=== PATIENT | female | born 1965 | race Caucasian/White ===

== ENCOUNTER 2016-09-08 07:10 | Emergency (ER) | payer OTHER ==
[~2016-09-08] VITALS: Ht 170.2 cm; Wt 60.0 kg
[~2016-09-08 07:10] MED LIST: CIPR750T10 PO; DOXY100T PO; NAPR500 PO; TIMO0.2525 EACH EYE; XALA0.00 EACH EYE
[2016-09-08 07:15] VITALS: BP 118/67; PULSE 65; RESP 16; TEMP 97.8; O2SAT 100
[2016-09-08] MEDS ORDERED: DOXY1TAB71 PO (07:30)
[2016-09-08] MEDS ORDERED: ZOLO50TA PO (07:30)
[2016-09-08] MEDS ORDERED: [UNRECOGNIZED DRUG - CODE] TOP (07:30)
[2016-09-08] MEDS ORDERED: MULT1TAB84 PO (07:30)
[2016-09-08] MEDS ORDERED: KETOROLAC TROMETHAMINE 60 MG/2 ML (IM) VIAL IM ONE (07:30)
--- NOTE | 2016-09-08 07:36 | PD ---
HPI . Left flank pain Chief Complaint: Musculoskeletal Complaint Time Seen by Provider: 07:29 Travel History International Travel<30 days: No Contact w/Intl Traveler<30days: No Traveled to known affect area: No History of Present Illness HPI Patient presents with left flank pain that started about a week ago. She states that she sneezed yesterday and the pain became acutely worse. She states she feels a lump in the left flank area and that the mom is very painful. Pain is exacerbated by movement. Pain is somewhat relieved by ibuprofen. He denies any associated symptoms such as fever, urinary tract symptoms, cough, GI symptoms. PFSH Past Medical History Cancer: Yes (CERVICAL 1996) Diminished Hearing: No Integumentary: Yes (ROSACEA) ?: Not Menopausal: Yes : 7 Para: 3 Miscarriage: 4 Past Surgical History Cholecystectomy: Yes Hysterectomy: Yes Other Surgery: Yes (LIPOMA REMOVED FROM BACK) Social History Alcohol Use: No Tobacco Use: No Substance Use: No Allergies-Medications (Allergen,Severity, Reaction): Coded Allergies: Keflex (Unverified Allergy, Mild, Rash, 09/08/16) Minocycline (Verified Adverse Reaction, Severe, 09/08/16) LOW BP Reported Meds & Prescriptions Reported Meds & Active Scripts Active Reported Multivitamin Adults (Multiple Vitamins W/ Minerals) 1 Tab 1 Tab PO DAILY Zoloft (Sertraline HCl) 50 Mg Tab 50 Mg PO DAILY Dermatop Topical (Prednicarbate) 0.1% Cre 1 Applic TOP DAILY Doxycycline Hyclate DR (Doxycycline Hyclate) 50 Mg Tab 50 Mg PO DAILY Review of Systems Except as stated in HPI: all other systems reviewed are Neg General / Constitutional: No: Fever, Chills Respiratory: No: Cough, Shortness of Breath Gastrointestinal: No: Nausea, Vomiting, Diarrhea, Abdominal Pain Genitourinary: No: Urgency, Frequency, Dysuria Musculoskeletal: Positive: Myalgias Physical Exam Narrative GENERAL: Patient ambulates in without difficulty. She is in no distress. SKIN: Warm and dry. HEAD: Atraumatic. Normocephalic. EYES: Pupils equal and round. ENT: No nasal bleeding or discharge. Mucous membranes pink and moist. NECK: Trachea midline. CARDIOVASCULAR: Regular rate and rhythm. Heart sounds are normal. RESPIRATORY: No accessory muscle use. Lungs are clear with full air movement throughout. GASTROINTESTINAL: Abdomen soft, non-tender, nondistended. There is no CVA tenderness. MUSCULOSKELETAL: No obvious deformities. No edema. She is tender in the left lateral low back at about the L3 level at the posterior axillary line. She is point tender. I do not feel a mass. NEUROLOGICAL: Awake and alert. No obvious cranial nerve deficits. Motor grossly within normal limits. Normal speech. PSYCHIATRIC: Appropriate mood and affect; insight and judgment normal. Data Data Last Documented VS Vital Signs Date Time Temp Pulse Resp B/P Pulse Ox O2 Delivery O2 Flow Rate FiO2 09/08/16 07:15 97.8 65 16 118/67 100 Orders Urinalysis - C+S If Indicated (09/08/16 07:30) Ketorolac Inj (Toradol Inj) (09/08/16 07:30) Labs Laboratory Tests Test 09/08/16 07:35 Urine Collection Type CLEAN CATCH Urine Color YELLOW Urine Turbidity CLEAR Urine pH 5.5 Urine Specific Jones 1.028 Urine Protein NEG mg/dL Urine Glucose (UA) NEG mg/dL Urine Ketones NEG mg/dL Urine Occult Blood MOD Urine Nitrite NEG Urine Bilirubin NEG Urine Leukocyte Esterase SMALL Urine RBC 4-9 /hpf Urine WBC 3-5 /hpf Urine Squamous Epithelial 0-5 /hpf Cells Urine Renal Epithelial Cells 0-5 /hpf Microscopic Urinalysis Comment CULT NOT INDICATED Urine Collection Time 07:35 [facility] Medical Decision Making Medical Screen Exam Complete: Yes Emergency Medical Condition: Yes Differential Diagnosis Differential diagnosis of flank pain includes but is not limited to kidney stone , pyelonephritis, musculoskeletal pain, PE Narrative Course Patient presents complaining of pain for the last week. It is exacerbated by movement. She has no associated symptoms. I feel like she probably has musculoskeletal low back pain and that the lump that she feels is probably a muscle spasm. Unfortunately, she drove herself here and really doesn't want to have to call for a ride. Therefore, I cannot treat her with a muscle relaxant and see how she does. I will check a urine and will plan to discharge her with an analgesic and something for muscle spasms. UA has moderate occult blood and 4-9 red cells. I have discussed our options as far as further evaluation is concerned. CT scanner here is down. I feel that the likelihood of a stone is pretty small given the fact that she does not have any other complaints such as vomiting or dysuria/hematuria. She is comfortable with the idea of going home with treatment for musculoskeletal back pain and follow-up with her primary care provider for further evaluation of possible kidney stone if her symptoms persist. Diagnosis Primary Impression: Left flank pain Med/Other Pt SpecificInfo: Prescription(s) given Scripts Diazepam (Valium)5 Mg Tab5 Mg PO TID PRN (muscle spasm) #12 TAB Ref 0 Prov:Diane Moctezuma MD 09/08/16 Tramadol (Ultram)50 Mg Tab50 Mg PO Q4H PRN (PAIN) #12 TAB Ref 0 Prov:Diane Moctezuma MD 09/08/16 Ibuprofen 800 Mg [id number] Mg PO Q8H PRN (pain) #30 TAB Ref 0 Prov:Diane Moctezuma MD 09/08/16 Disposition: 01 DISCHARGE HOME Condition: Stable Diane Moctezuma MD Sep 08, 2016 07:36
[2016-09-08 07:47] LABS: GLUCOSE,URINE NEG (NEG); KETONE, URINE NEG (NEG); NITRITE,URINE NEG (NEG); PH, URINE 5.5 (5.0-8.5)
[2016-09-08 07:52] LABS: BLOOD, URINE MOD (NEG)
[2016-09-08 07:53] LABS: METHOD OF COLLECTION CLEAN CATCH; URINE COLOR YELLOW (YELLW/STRAW)
[2016-09-08 07:54] LABS: COMMENT (UR) CULT NOT INDICATED; CULTURE IF INDICATED CULT NOT INDICATED; RENAL EPITHELIAL CELLS 0-5 /hpf; SQUAMOUS EPITHELIAL CELL URINE 0-5 /hpf (0-5)
[2016-09-08] MEDS ORDERED: DIAZ5 PO (08:04)
[2016-09-08] MEDS ORDERED: IBUP800T23 PO (08:04)
[2016-09-08] MEDS ORDERED: ULTR50TA5 PO (08:04)
[2016-09-08] MEDS ORDERED: DIAZEPAM 5 MG TAB PO ONE (08:15)
[2016-09-08] MEDS ORDERED: traMADol HCL 50 MG TAB PO ONE (08:15)
[2016-09-08 08:39] VITALS: BP 112/64
[2016-09-09] MEDS ORDERED: ULTR50TA5 PO (03:36)
[2016-09-09] MEDS ORDERED: ZOFR4TAB3 SL (03:37)
== END 2016-09-08 08:40 | disposition home or self-care (01) ==
LOC: PHED 07:10
DX: R10.32 Left lower quadrant pain (principal)
CPT/HCPCS: 81001; 96372; 99284; J1885

== ENCOUNTER 2016-09-08 21:49 | Emergency (ER) | payer OTHER ==
[~2016-09-08] VITALS: Ht 170.2 cm; Wt 60.1 kg
[~2016-09-08 21:49] MED LIST changes: +DIAZ5 PO; +DOXY1TAB71 PO; +IBUP800T23 PO; +MULT1TAB84 PO; +ULTR50TA5 PO; +ZOLO50TA PO; +[UNRECOGNIZED DRUG - CODE] TOP
[2016-09-08 22:03] VITALS: BP 97/63; PULSE 66; RESP 16; TEMP 98.4; O2SAT 97
[2016-09-09 01:00] VITALS: BP 102/62; PULSE 70; RESP 16; O2SAT 99
[2016-09-09] MEDS ORDERED: SODIUM CHLOR 0.9% 1000 ML INJ 1,000 ML IV ONE (01:51)
[2016-09-09] MEDS ORDERED: SODIUM CHLORIDE 0.9% FLUSH 5 ML FLUSH IVF PRN (02:00)
[2016-09-09] MEDS ORDERED: KETOROLAC TROMETHAMINE 30 MG/ML (IVP) VIAL IVP ONE (02:00)
[2016-09-09] MEDS ORDERED: ONDANSETRON HCL 4 MG/2 ML VIAL IVP ONE (02:00)
--- NOTE | 2016-09-09 02:09 | PD ---
HPI Chief Complaint: Complaint Time Seen by Provider: 01:51 Travel History International Travel<30 days: No Contact w/Intl Traveler<30days: No Traveled to known affect area: No History of Present Illness HPI 51-year-old female presents to the emergency department for complaint of left flank pain onset approximately one week ago and sharp pain since forceful sneeze more recently. Patient denies any fever chills or shortness of breath. Patient's had no dysuria frequency or urgency but was noted to have hematuria on urinalysis when evaluated earlier 09/08/15 in the emergency department for same complaint. Imaging study was performed at that time as CT CT scan machine was not functional. Patient returns because pain is returning and she is concerned about etiology of blood in her urine and source of flank pain. No prior history of kidney stones. PFSH Past Medical History Narrative Medical Cervical cancer rosacea G7 para 3 AB for cholecystectomy hysterectomy and tobacco use no alcohol use nursing notes reviewed Cancer: Yes (CERVICAL 1996) Diminished Hearing: No Integumentary: Yes (ROSACEA) ?: Not Menopausal: Yes : 7 Para: 3 Miscarriage: 4 Past Surgical History Cholecystectomy: Yes Hysterectomy: Yes Other Surgery: Yes (LIPOMA REMOVED FROM BACK) Social History Alcohol Use: No Tobacco Use: No Substance Use: No Allergies-Medications (Allergen,Severity, Reaction): Coded Allergies: Keflex (Verified Allergy, Mild, Rash, 09/09/16) Minocycline (Verified Adverse Reaction, Severe, 09/09/16) LOW BP Reported Meds & Prescriptions Reported Meds & Active Scripts Active Zofran Odt (Ondansetron Odt) 4 Mg Tab 4 Mg SL Q6HR PRN Ultram (Tramadol HCl) 50 Mg Tab 50 Mg PO Q6H PRN Valium (Diazepam) 5 Mg Tab 5 Mg PO TID PRN Ultram (Tramadol HCl) 50 Mg Tab 50 Mg PO Q4H PRN Ibuprofen 800 Mg Tab 800 Mg PO Q8H PRN Reported Multivitamin Adults (Multiple Vitamins W/ Minerals) 1 Tab 1 Tab PO DAILY Zoloft (Sertraline HCl) 50 Mg Tab 50 Mg PO DAILY Dermatop Topical (Prednicarbate) 0.1% Cre 1 Applic TOP DAILY Doxycycline Hyclate DR (Doxycycline Hyclate) 50 Mg Tab 50 Mg PO DAILY Review of Systems Except as stated in HPI: all other systems reviewed are Neg Physical Exam Narrative GENERAL: Well-developed well-nourished female in no acute distress no respiratory distress SKIN: Warm and dry. HEAD: Normocephalic. EYES: No scleral icterus. No injection or drainage. NECK: Supple, trachea midline. No JVD or lymphadenopathy. CARDIOVASCULAR: Regular rate and rhythm without murmurs, gallops, or rubs. RESPIRATORY: Breath sounds equal bilaterally. No accessory muscle use. GASTROINTESTINAL: Abdomen soft, non-tender, nondistended. MUSCULOSKELETAL: No cyanosis, or edema. BACK: Nontender without obvious deformity. Left-sided CVA tenderness. Data Data Last Documented VS Vital Signs Date Time Temp Pulse Resp B/P Pulse Ox O2 Delivery O2 Flow Rate FiO2 09/09/16 01:00 70 16 102/62 99 09/08/16 22:03 98.4 Room Air Orders Complete Blood Count With Diff (09/09/16 01:51) Basic Metabolic Panel (Bmp) (09/09/16 01:51) Ct Abd/Pel W/O Iv Contrast (09/09/16 01:51) Ecg Monitoring (09/09/16 01:51) Iv Access Insert/Monitor (09/09/16 01:51) Ketorolac Inj (Toradol Inj) (09/09/16 02:00) Ondansetron Inj (Zofran Inj) (09/09/16 02:00) Sodium Chloride 0.9% Flush (Ns Flush) (09/09/16 02:00) Sodium Chlor 0.9% 1000 Ml Inj (Ns 1000 M (09/09/16 01:51) Labs Laboratory Tests Test 09/09/16 02:05 White Blood Count 7.7 TH/MM3 Red Blood Count 4.57 MIL/MM3 Hemoglobin 12.4 GM/DL Hematocrit 38.3 % Mean Corpuscular Volume 84.0 FL Mean Corpuscular Hemoglobin 27.1 PG Mean Corpuscular Hemoglobin 32.3 % Concent Red Cell Distribution Width 13.1 % Platelet Count 216 TH/MM3 Mean Platelet Volume 8.8 FL Neutrophils (%) (Auto) 66.0 % Lymphocytes (%) (Auto) 25.9 % Monocytes (%) (Auto) 5.6 % Eosinophils (%) (Auto) 2.0 % Basophils (%) (Auto) 0.5 % Neutrophils # (Auto) 5.1 TH/MM3 Lymphocytes # (Auto) 2.0 TH/MM3 Monocytes # (Auto) 0.4 TH/MM3 Eosinophils # (Auto) 0.2 TH/MM3 Basophils # (Auto) 0.0 TH/MM3 CBC Comment DIFF FINAL Differential Comment Sodium Level 144 MEQ/L Potassium Level 3.8 MEQ/L Chloride Level 110 MEQ/L Carbon Dioxide Level 27.7 MEQ/L Anion Gap 6 MEQ/L Blood Urea Nitrogen 22 MG/DL Creatinine 0.64 MG/DL Estimat Glomerular Filtration 97 ML/MIN Rate Random Glucose 96 MG/DL Calcium Level 8.4 MG/DL MDM Medical Decision Making Medical Screen Exam Complete: Yes Emergency Medical Condition: Yes Medical Record Reviewed: Yes Interpretation(s) cbc: grossy wnl metabolic panel: grossly wnl CT abd/pel: CONCLUSION: No evidence of hydronephrosis or calcified renal stones. Kayden Sheth MD on September 09, 2016 at 3:04 Board Certified Radiologist. This report was verified electronically. Differential Diagnosis Flank pain renal colic pyelonephritis rib fracture Narrative Course IV access obtained specimens collected and sent for resulting; patient administered Toradol 30 mg IV and Zofran 4 mg IV along with normal saline 1 L Diagnosis Primary Impression: Left flank pain Referrals: Primary Care Physician call for appointment Patient Instructions: General Instructions Additional Instructions: Increase fluid hydration Take pain medication as prescribed as needed Take nausea vomiting medication as prescribed as needed May use ibuprofen/Advil/Motrin every 6-8 hours as needed for pain associated with inflammation or for fever 100.4F or greater May use as tolerated acetaminophen/Tylenol as needed for fever 100.4F or greater Med/Other Pt SpecificInfo: Prescription(s) given Scripts Ondansetron Odt (Zofran Odt)4 Mg Tab4 Mg SL Q6HR PRN (Nausea/Vomiting) #10 TAB Ref 0 Prov:Denisse Lopez MD 09/09/16 Tramadol (Ultram)50 Mg Tab50 Mg PO Q6H PRN (PAIN) #12 TAB Ref 0 Prov:Denisse Lopez MD 09/09/16 Disposition: 01 DISCHARGE HOME Condition: Stable Denisse Lopez MD Sep 09, 2016 02:09
[2016-09-09 02:33] LABS: AUTOMATED NEUTROPHIL # 5.1 TH/MM3 (1.8-7.7); BASOPHIL % 0.5 % (0.0-2.0); EOSINOPHIL # 0.2 TH/MM3 (0-0.4); HEMATOCRIT 38.3 % (35.0-46.0); HEMO FLAGS DIFF FINAL; LYMPH % 25.9 % (9.0-44.0); MEAN CORPUSCULAR HEMOGLOBIN 27.1 PG (27.0-34.0); MEAN CORPUSCULAR HGB CONC 32.3 % (32.0-36.0); MONO % 5.6 % (0.0-8.0); PLATELET COUNT 216 TH/MM3 (150-450); RED BLOOD COUNT 4.57 MIL/MM3 (4.00-5.30); RED CELL DISTRIBUTION WIDTH 13.1 % (11.6-17.2); WHITE BLOOD COUNT 7.7 TH/MM3 (4.0-11.0)
[2016-09-09 02:42] LABS: POTASSIUM 3.8 MEQ/L (3.5-5.1)
[2016-09-09 02:45] LABS: BICARBONATE 27.7 MEQ/L (21.0-32.0)
--- NOTE | 2016-09-09 03:10 | RADHPO ---
EXAM DATE/TIME: 09/09/2016 02:23 [place] COMPARISON: CT ABDOMEN & PELVIS W/O CONTRAST, October 24, 2014, 1:54. INDICATIONS : Left sided flank pain for one day. ORAL CONTRAST: No oral contrast ingested. RADIATION DOSE: 9.44 CTDIvol (mGy) MEDICAL HISTORY : Carcinoma, cervical. SURGICAL HISTORY : Cholecystectomy. Hysterectomy. ENCOUNTER: Initial ACUITY: 1 day PAIN SCALE: 7/10 LOCATION: Left flank TECHNIQUE: Volumetric scanning of the abdomen and pelvis was performed. Using automated exposure control and ad justment of the mA and/or kV according to patient size, radiation dose was kept as low as reasonably achievable to obtain optimal diagnostic quality images. FINDINGS: LOWER LUNGS: The visualized lower lungs are clear. LIVER: Oval smooth margin 1.5 cm low-density lesion posterior segment right lobe has appearance characterist ic of a cyst, stable from prior. The left lobe liver extends to the left upper quadrant, stable from prior. Hemoclips in the devante from prior cholecystectomy. SPLEEN: Normal size without lesion. PANCREAS: Within normal limits. KIDNEYS: Stable appearance of the collecting system of the left kidney with mild prominence there are no calci fied stones in either kidney or along the course of either ureter. ADRENAL GLANDS: Within normal limits. VASCULAR: There is no aortic aneurysm. BOWEL/MESENTERY: The stomach, small bowel, and colon demonstrate no acute abnormality. There is no free intraperitone al air or fluid. ABDOMINAL WALL: Within normal limits. RETROPERITONEUM: There is no lymphadenopathy. BLADDER: No wall thickening or mass. No calcified stones in the lumen. There are multiple calcified phleboli ths in the pelvis, stable from prior. REPRODUCTIVE: Within normal limits. INGUINAL: There is no lymphadenopathy or hernia. MUSCULOSKELETAL: Within normal limits for patient age. CONCLUSION: No evidence of hydronephrosis or calcified renal stones. Kayden Sheth MD on September 09, 2016 at 3:04 Board Certified Radiologist. This report was verified electronically.
[2016-09-09] MEDS ORDERED: ULTR50TA5 PO (03:36)
[2016-09-09] MEDS ORDERED: ZOFR4TAB3 SL (03:37)
[2016-09-09 03:50] VITALS: BP 94/57
== END 2016-09-09 03:54 | disposition home or self-care (01) ==
LOC: PHED 21:49
DX: R10.32 Left lower quadrant pain (principal)
CPT/HCPCS: 74176; 80048; 85025; 96361; 96374; 96375; 99284; J1885; J2405; J7030

== ENCOUNTER → 2016-10-30 | Outpatient (CLI) | payer OTHER ==
[~2016-10-30] MED LIST changes: -CIPR750T10 PO; -DOXY100T PO; -NAPR500 PO; -TIMO0.2525 EACH EYE; -XALA0.00 EACH EYE; +ZOFR4TAB3 SL
[2016-10-30 09:20] LABS: HEMATOCRIT 38.3 % (35.0-46.0); MEAN CELL VOLUME 83.7 FL (80.0-100.0); MEAN CORPUSCULAR HEMOGLOBIN 27.5 PG (27.0-34.0); MEAN CORPUSCULAR HGB CONC 32.9 % (32.0-36.0); PLATELET COUNT 224 TH/MM3 (150-450); RED BLOOD COUNT 4.57 MIL/MM3 (4.00-5.30); RED CELL DISTRIBUTION WIDTH 13.4 % (11.6-17.2); REVIEW FLAG FINAL; WHITE BLOOD COUNT 6.7 TH/MM3 (4.0-11.0)
[2016-10-30 09:24] LABS: BACTERIA, URINE RARE /hpf; BLOOD, URINE TRACE (NEG); GLUCOSE,URINE NEG (NEG); KETONE, URINE NEG (NEG); MUCUS URINE FEW /lpf (OCC); NITRITE,URINE NEG (NEG); SQUAMOUS EPITHELIAL CELL URINE 1 /hpf (0-5); URINE COLOR YELLOW (YELLW/STRAW)
[2016-10-30 10:03] LABS: ALKALINE PHOSPHATASE 72 U/L (45-117); ALT (GPT) 22 U/L (10-53); ANION GAP 8 MEQ/L (5-15); AST (GOT) 16 U/L (15-37); BICARBONATE 28.5 MEQ/L (21.0-32.0); BLOOD UREA NITROGEN 21 MG/DL (7-18); CHLORIDE 103 MEQ/L (98-107); GLOMERULAR FILTRATION RATE 77 ML/MIN (>89); GLUCOSE,FASTING 94 MG/DL (74-99); HDL CHOLESTEROL 72.3 MG/DL (40.0-60.0); LDL CHOLESTEROL 106 MG/DL (0-99); POTASSIUM 3.8 MEQ/L (3.5-5.1); SODIUM (NA) 139 MEQ/L (136-145); TOTAL BILIRUBIN ADULT 0.3 MG/DL (0.2-1.0)
== END ==
LOC: PLAB 07:15
PROVIDERS: ATTEND Family Medicine
DX: E78.5 Hyperlipidemia, unspecified (principal)
CPT/HCPCS: 80053; 80061; 81001; 84443; 85027

== ENCOUNTER → 2016-11-13 | Outpatient (CLI) | payer OTHER ==
[2016-11-13 09:09] LABS: BACTERIA, URINE RARE /hpf; BLOOD, URINE SMALL (NEG); COMMENT (UR) CULT NOT INDICATED; CULTURE IF INDICATED CULT NOT INDICATED; GLUCOSE,URINE NEG (NEG); HYALINE CAST, URINE 1 /lpf (RARE); KETONE, URINE NEG (NEG); MUCUS URINE FEW /lpf (OCC); NITRITE,URINE NEG (NEG); SQUAMOUS EPITHELIAL CELL URINE 1 /hpf (0-5); URINE COLOR YELLOW (YELLW/STRAW)
== END ==
LOC: PLAB 07:18
PROVIDERS: ATTEND Family Medicine
DX: N39.0 Urinary tract infection, site not specified (principal)
CPT/HCPCS: 81001

== ENCOUNTER → 2017-02-22 | Day surgery (SDC) | payer OTHER ==
[~2017-02-22] MED LIST changes: +LACTATED RINGER'S 1000 ML INJ 1,000 ML ONE; +PROPOFOL 500 MG/50 ML BTL IV ONE
--- NOTE | 2017-02-22 14:08 | GIPROC ---
[facility] [address], [address] COLONOSCOPY PROCEDURE REPORT EXAM DATE: 02/22/2017 PATIENT NAME: Jolene Bah MR #: [id number] BIRTHDATE: 1965 ENDOSCOPIST: Rosa Parra MD ORDER #: [id number] MEDICATION MANAGER: STATUS: outpatient INDICATIONS: The patient is a 51 yr old female here for a colonoscopy due to high risk patient with personal history of colonic polyps PROCEDURE PERFORMED: Colonoscopy, screening MEDICATIONS: None and Per Anesthesia. PREP QUALITY: good ESTIMATED BLOOD LOSS: None CONSENT: The patient understands the risks and benefits of the procedure and understands that these risks include, but are not limited to: sedation, allergic reaction, infection, perforation and/or bleeding. Alternative means of evaluation and treatment include, among others: physical exam, x-rays, and/or surgical intervention. The patient elects to proceed with this endoscopic procedure. medical equipment was checked for proper function. Hand hygiene and appropriate measures for infection prevention was taken. After the risks, benefits and alternatives of the procedure were thoroughly explained, Informed consent was verified, confirmed and timeout was successfully executed by the treatment team. A digital exam revealed no abnormalities of the rectum The EC-[id number] ([id number]) endoscope was introduced through the anus and advanced to the cecum, which was identified by both the appendix and ileocecal valve. The instrument was then slowly withdrawn as the colon was fully examined. COLON FINDINGS: The colonic mucosa appeared normal. Retroflexed views revealed small internal hemorrhoids The scope was then completely withdrawn from the patient and the procedure terminated. ADVERSE EVENTS: There were no complications. IMPRESSIONS: 1. The colonic mucosa appeared normal 2. Retroflexed views revealed small internal hemorrhoids 3. Revealed no abnormalities of the rectum RECOMMENDATIONS: 1. Yearly hemoccult 2. High fiber diet RECALL: Return 5 years Colonoscopy Rosa Parra MD eSigned: Rosa Parra MD 02/22/2017 2:08 PM cc:
--- NOTE | 2017-02-22 14:13 | GIPROC ---
[facility] [address] [address] [facility], [address] EGD PROCEDURE REPORT EXAM DATE: 02/22/2017 PATIENT NAME: Jolene Bah MR #: [id number] BIRTHDATE: 1965 ATTENDING: Rosa Parra MD ORDER #: [id number] TECHNICAL PROJECT MANAGER: STATUS: outpatient INDICATIONS: The patient is a 51 yr old female here for an EGD due to epigastric abdominal pain, nausea, and dyspepsia PROCEDURE PERFORMED: EGD w/ biopsy MEDICATIONS: None and Per Anesthesia. TOPICAL ANESTHETIC: none CONSENT: The patient understands the risks and benefits of the procedure and understands that these risks include, but are not limited to: sedation, allergic reaction, infection, perforation and/or bleeding. Alternative means of evaluation and treatment include, among others: physical exam, x-rays, and/or surgical intervention. The patient elects to proceed with this endoscopic procedure. medical equipment was checked for proper function. Hand hygiene and appropriate measures for infection prevention was taken. After the risks, benefits and alternatives of the procedure were thoroughly explained, Informed consent was verified, confirmed and timeout was successfully executed by the treatment team. The patient was anesthetized with topical anesthesia and the EC-[id number] ([id number]) endoscope was introduced through the mouth and advanced to the second portion of the duodenum. Retroflexed views revealed no abnormalities The gastroscope was then slowly withdrawn and removed. Sever gastritis Bx from antrum. Esophagitis, irregular Z line and small ulceration ?old Marilou Trimble tear. ADVERSE EVENTS: There were no complications. IMPRESSIONS: 1. Sever gastritis Bx from antrum 2. Esophagitis, irregular Z line and small ulceration ?old Marilou Trimble tear 3. Retroflexed views revealed no abnormalities RECOMMENDATIONS: 1. Await biopsy results. Biopsy results will not be ready for 7-10 days. If you don't hear from us in two weeks, call our office for biopsy results. 2. Anti-reflux regimen 3. Avoid NSAIDS 4. Protonix 40mg Q AM PATIENT CONDITION: stable DISPOSITION: Home REPEAT EXAM: Return as needed for EGD Rosa Parra MD eSigned: Rosa Parra MD 02/22/2017 2:12 PM cc:
== END | disposition home or self-care (01) ==
LOC: ESDC 11:20
PROVIDERS: ATTEND Hospitalist
DX: Z12.11 Encounter for screening for malignant neoplasm of colon (principal); Z86.010 Personal history of colon polyps; K64.8 Other hemorrhoids; R10.13 Epigastric pain; R11.0 Nausea; K29.70 Gastritis, unspecified, without bleeding; K20.9 Esophagitis, unspecified; K22.9 Disease of esophagus, unspecified; K25.9 Gastric ulcer, unspecified as acute or chronic, without hemorrhage or perforation
CPT/HCPCS: 00740; 00810; 43239; 45378; 88305; 88312; J3010; J7120

== ENCOUNTER 2017-05-22 21:14 | Emergency (ER) | payer OTHER ==
[~2017-05-22 21:14] MED LIST changes: -LACTATED RINGER'S 1000 ML INJ 1,000 ML ONE; -PROPOFOL 500 MG/50 ML BTL IV ONE
[2017-05-22 21:28] VITALS: BP 113/71; PULSE 69; RESP 18; TEMP 97; O2SAT 97
[2017-05-22] MEDS ORDERED: PANT40TA3 PO (21:44)
[2017-05-22] MEDS ORDERED: ACETAMINOPHEN 325 MG TAB PO ONE (21:45)
--- NOTE | 2017-05-22 21:45 | PD ---
HPI Chief Complaint: Complaint Time Seen by Provider: 21:39 Travel History International Travel<30 days: No Contact w/Intl Traveler<30days: No Traveled to known affect area: No History of Present Illness HPI 51-year-old female presents to the emergency department for one day of urinary frequency urgency and dysuria. Patient stated this evening suprapubic pressure and right flank discomfort. Patient has had experienced mild chills and nausea but no fever and no vomiting and no generalized abdominal pain change in bowel habit diarrhea. Patient has prior history of recurrent UTI. Patient denies history of colitis or diverticulitis. No report of kidney stone. Patient is status post hysterectomy tubal ligation and cholecystectomy. Patient has history of peptic ulcer disease confirmed by endoscopy and takes omeprazole as well as rosacea for which she is prescribed doxycycline. Patient denies other concerns or complaints. Patient does radiate discomfort 8/10 in intensity and states she can't take Tylenol but has not had any pain medication. Patient states she cannot take NSAIDs/ibuprofen in view of history of peptic ulcer disease. PFSH Past Medical History Narrative Medical Rosacea, cervical cancer in 1995, peptic ulcer disease, upper endoscopy, hysterectomy cholecystectomy tubal ligation no tobacco use nursing notes reviewed Cancer: Yes (CERVICAL 1995) Diminished Hearing: No Integumentary: Yes (ROSACEA) Menopausal: Yes : 7 Para: 3 Miscarriage: 4 Past Surgical History Cholecystectomy: Yes Hysterectomy: Yes Other Surgery: Yes (LIPOMA REMOVED FROM BACK) Social History Alcohol Use: No Tobacco Use: No Substance Use: No Allergies-Medications (Allergen,Severity, Reaction): Coded Allergies: cephalexin (Unverified Allergy, Mild, Rash, 05/22/17) minocycline (Unverified Adverse Reaction, Severe, 05/22/17) LOW BP Reported Meds & Prescriptions Reported Meds & Active Scripts Active Pyridium (Phenazopyridine HCl) 100 Mg Tab 100 Mg PO Q8H PRN Bactrim DS (Sulfamethoxazole-Trimethoprim) 800-160 Mg Tab 1 Tab PO BID Reported Pantoprazole (Pantoprazole Sodium) 40 Mg Tab 40 Mg PO DAILY Doxycycline Hyclate DR (Doxycycline Hyclate) 50 Mg Tab 50 Mg PO DAILY Review of Systems Except as stated in HPI: all other systems reviewed are Neg General / Constitutional: Positive: Chills, No: Fever HENT: No: Congestion Cardiovascular: No: Chest Pain or Discomfort Respiratory: No: Shortness of Breath Gastrointestinal: Positive: Nausea, No: Vomiting Genitourinary: Positive: Urgency, Frequency, Dysuria, Flank Pain (right) Musculoskeletal: No: Pain Skin: No Rash Neurologic: No: Weakness Psychiatric: No: Anxiety Hematologic/Lymphatic: No: Lymph Node Enlargement Physical Exam Narrative GENERAL: Well-developed well-nourished female in acute distress no respiratory distress SKIN: Warm and dry. HEAD: Normocephalic. EYES: No scleral icterus. No injection or drainage. NECK: Supple, trachea midline. No JVD or lymphadenopathy. CARDIOVASCULAR: Regular rate and rhythm without murmurs, gallops, or rubs. RESPIRATORY: Breath sounds equal bilaterally. No accessory muscle use. GASTROINTESTINAL: Abdomen soft, mild suprapubic pressure to palpation and tenderness without guarding or rebound, nondistended. MUSCULOSKELETAL: No cyanosis, or edema. BACK: Nontender without obvious deformity. Mild right-sided CVA tenderness. Data Data Last Documented VS Vital Signs Date Time Temp Pulse Resp B/P (MAP) Pulse Ox O2 Delivery O2 Flow Rate FiO2 05/22/17 22:28 71 18 101/67 (78) 97 05/22/17 21:28 97.0 Orders Orders Urinalysis - C+S If Indicated (05/22/17 21:39) Acetaminophen (Tylenol) (05/22/17 21:45) Urine Culture (05/22/17 21:43) Phenazopyridine (Pyridium) (05/22/17 22:15) Sulfamet-Trimeth Ds 800-160 Mg (Bactrim (05/22/17 22:15) Labs Laboratory Tests Test 05/22/17 21:43 Urine Color YELLOW Urine Turbidity CLEAR Urine pH 5.5 Urine Specific [place] 1.030 Urine Protein NEG mg/dL Urine Glucose (UA) NEG mg/dL Urine Ketones NEG mg/dL Urine Occult Blood MOD Urine Nitrite NEG Urine Bilirubin NEG Urine Leukocyte Esterase TRACE Urine RBC 4-9 /hpf Urine WBC 25-49 /hpf Urine Squamous Epithelial Cells 0-5 /hpf Urine Mucus FEW /lpf Microscopic Urinalysis Comment CULTURE INDICATED MDM Medical Decision Making Medical Screen Exam Complete: Yes Emergency Medical Condition: Yes Medical Record Reviewed: Yes Interpretation(s) Urinalysis: Positive blood positive leukocyte Estrace positive red blood cells positive white blood cells culture indicated Differential Diagnosis dysuria, cystitis, pyelonephritis, renal colic; also to consider colitis diverticulitis bowel obstruction appendicitis Narrative Course Urine specimen collected and sent for resulting; patient requesting a one-time dose of acetaminophen Patient informed of urinalysis results given first dose of antibiotic Bactrim DS and Pyridium Patient stable for outpatient management Diagnosis Primary Impression: Cystitis Referrals: Primary Care Physician 2 days Patient Instructions: General Instructions Additional Instructions: Increase fluid hydration Complete course of antibiotic as prescribed Use Pyridium as prescribed as needed for bladder spasm Take acetaminophen/Tylenol as tolerated for fever 100.4F or greater or for pain Fall. Primary care provider call office in a.m. to schedule follow-up appointment Return to the emergency department for any concerns or change in condition Med/Other Pt SpecificInfo: Prescription(s) given Scripts Phenazopyridine (Pyridium) 100 Mg Tab 100 MG PO Q8H Y for DYSURIA, #6 TAB 0 Refills Prov: Denisse Lopez MD 05/22/17 Sulfamethoxazole-Trimethoprim (Bactrim DS) 800-160 Mg Tab 1 TAB PO BID for Infection, #14 TAB 0 Refills Prov: Denisse Lopez MD 05/22/17 Disposition: 01 DISCHARGE HOME Condition: Stable Denisse Lopez MD May 22, 2017 21:45
[2017-05-22 21:51] LABS: BLOOD, URINE MOD (NEG); GLUCOSE,URINE NEG (NEG); KETONE, URINE NEG (NEG); NITRITE,URINE NEG (NEG); PH, URINE 5.5 (5.0-8.5)
[2017-05-22 21:55] LABS: URINE COLOR YELLOW (YELLW/STRAW)
[2017-05-22 21:56] LABS: COMMENT (UR) CULTURE INDICATED; CULTURE IF INDICATED CULTURE INDICATED; MUCUS URINE FEW /lpf (OCC); SQUAMOUS EPITHELIAL CELL URINE 0-5 /hpf (0-5)
[2017-05-22] MEDS ORDERED: SULFAMETHOXAZOLE-TRIMETHOPRIM DS 800-160 MG TAB PO ONE (22:15)
[2017-05-22] MEDS ORDERED: PHENAZOPYRIDINE HCL 100 MG TAB PO ONE (22:15)
[2017-05-22] MEDS ORDERED: PHEN0.4T PO (22:17)
[2017-05-22] MEDS ORDERED: BACT800T5 PO (22:17)
[2017-05-22 22:22] VITALS: RESP 18
[2017-05-22 22:28] VITALS: BP 101/67
== END 2017-05-22 22:32 | disposition home or self-care (01) ==
LOC: PHED 21:14
DX: N30.90 Cystitis, unspecified without hematuria (principal)
CPT/HCPCS: 81001; 87086; 99284

== ENCOUNTER → 2017-11-02 | Outpatient (CLI) | payer OTHER ==
[~2017-11-02] MED LIST changes: +BACT800T5 PO; -DIAZ5 PO; -IBUP800T23 PO; -MULT1TAB84 PO; +PANT40TA3 PO; +PHEN0.4T PO; -ULTR50TA5 PO; -ZOFR4TAB3 SL; -ZOLO50TA PO; -[UNRECOGNIZED DRUG - CODE] TOP
[2017-11-02 08:16] LABS: HEMATOCRIT 39.2 % (35.0-46.0); HEMOGLOBIN 13.2 GM/DL (11.6-15.3); MEAN CELL VOLUME 83.9 FL (80.0-100.0); MEAN CORPUSCULAR HEMOGLOBIN 28.3 PG (27.0-34.0); MEAN CORPUSCULAR HGB CONC 33.7 % (32.0-36.0); MEAN PLATELET VOLUME 7.9 FL (7.0-11.0); PLATELET COUNT 234 TH/MM3 (150-450); RED BLOOD COUNT 4.66 MIL/MM3 (4.00-5.30); RED CELL DISTRIBUTION WIDTH 13.9 % (11.6-17.2); WHITE BLOOD COUNT 8.2 TH/MM3 (4.0-11.0)
[2017-11-02 08:34] LABS: AST (GOT) 13 U/L (15-37); BLOOD UREA NITROGEN 20 MG/DL (7-18); CHLORIDE 104 MEQ/L (98-107); CHOLESTEROL 205 MG/DL (120-200); CREATININE 0.71 MG/DL (0.50-1.00); GLOMERULAR FILTRATION RATE 86 ML/MIN (>89); GLUCOSE,FASTING 79 MG/DL (74-99); SODIUM (NA) 140 MEQ/L (136-145)
[2017-11-02 08:38] LABS: BACTERIA, URINE RARE /hpf; BILIRUBIN, URINE NEG (NEG); BLOOD, URINE TRACE (NEG); GLUCOSE,URINE NEG (NEG); KETONE, URINE NEG (NEG); MUCUS URINE FEW /lpf (OCC); NITRITE,URINE NEG (NEG); PH, URINE 5.5 (5.0-8.5); RENAL EPITHELIAL CELLS <1 /hpf; SQUAMOUS EPITHELIAL CELL URINE 1 /hpf (0-5); URINE COLOR YELLOW (YELLW/STRAW); URINE LEUKOCYTE ESTERASE LARGE (NEG)
[2017-11-02 08:44] LABS: ALKALINE PHOSPHATASE 77 U/L (45-117); ALT (GPT) 14 U/L (10-53); CHOLESTEROL/ HDL RATIO 3.28 RATIO; HDL CHOLESTEROL 62.4 MG/DL (40.0-60.0); LDL CHOLESTEROL 127 MG/DL (0-99); TOTAL BILIRUBIN ADULT 0.4 MG/DL (0.2-1.0); TOTAL PROTEIN 7.2 GM/DL (6.4-8.2); TRIGLYCERIDES 77 MG/DL (42-150)
== END ==
LOC: CLAB 07:56
PROVIDERS: ATTEND Family Medicine
DX: E78.5 Hyperlipidemia, unspecified (principal); Z00.01 Encounter for general adult medical examination with abnormal findings
CPT/HCPCS: 36415; 80053; 80061; 81001; 84443; 85027